=== PATIENT | female | born 1960 | race Caucasian/White ===

== ENCOUNTER → 2017-05-22 | Outpatient (CLI) | payer BC, OTHER | LOC: RAD 15:08 | DX: R06.00 Dyspnea, unspecified (principal) ==

== ENCOUNTER → 2018-01-21 | Outpatient (CLI) | payer BC, OTHER ==
--- NOTE | ~2018-01-21 | EEG ---
[facility] [place] [address] ELECTROENCEPHALOGRAM Name: NIALL BARKSDALE Room #: [facility].#: [id number] Admission: 01/21/18 Attend Phys: Mariana Solomon MD Discharge: Date of : 62 Report #: [id number] THIS REPORT FOR: //name// CC: Mariana Solomon DATE OF SERVICE: 01/21/2018 This patient is being evaluated for the possibility of seizure. EEG was done by placing the electrodes by standard 10/20 system of electrode placement. Both referential and sequential montages were used for recording. Background activity in this patient's EEG is about 11 Hz and 40 microvolts. The patient went to sleep that is associated with bilaterally symmetrical sleep spindle and vertex sharp waves. Throughout the record, no active epileptiform activity was noticed. Photic stimulation is unremarkable. IMPRESSION: This patient's EEG is within normal limits. Thank you very much for this referral. By: [id number] Paco Gonzalez MD /nt
== END ==
LOC: NEURO 06:26
DX: R56.9 Unspecified convulsions (principal)